=== PATIENT | male | born 1960 | race Two or more races ===

== ENCOUNTER 2024-01-28 18:11 | Emergency (ER) | payer OTHER ==
[2024-01-28] MEDS ORDERED: CARV12 PO (18:21)
[2024-01-28] MEDS ORDERED: POTA-206 PO (18:21)
[2024-01-28] MEDS ORDERED: SACU1TAB7 PO (18:21)
[2024-01-28] MEDS ORDERED: ATOR40TA28 PO (18:21)
[2024-01-28] MEDS ORDERED: AMIO200T68 PO (18:21)
[2024-01-28] MEDS ORDERED: SPIR-37 PO (18:21)
[2024-01-28] MEDS ORDERED: TICA60TA PO (18:21)
[2024-01-28] MEDS ORDERED: DOCU-385 PO (18:21)
[2024-01-28] MEDS ORDERED: ASPI-1444 PO (18:21)
[2024-01-28 19:23] LABS: BASOPHILS % (AUTO) 0.8 % (0.0-2.0); EOSINOPHILS % (AUTO) 0.9 % (1.0-6.0); HEMATOCRIT 50.1 % (41-53); HEMOGLOBIN 16.7 g/dL (13.5-17.5); LYMPHOCYTES # (AUTO) 1.3 K/uL (1.0-4.8); LYMPHOCYTES % (AUTO) 21.2 % (22.0-44.0); MEAN CORPUSCULAR HEMOGLOBIN 30.9 pg (26.0-34.0); MEAN CORPUSCULAR HGB CONC 33.2 G/dL (31.0-37.0); MEAN CORPUSCULAR VOLUME 93 fL (80-100); MONOCYTES # (AUTO) 0.4 K/uL (0.1-1.0); MONOCYTES % (AUTO) 7.3 % (2.0-9.0); NEUTROPHILS # (AUTO) 4.2 K/uL (1.8-7.7); NEUTROPHILS % (AUTO) 69.8 % (40.0-70.0); PLATELET COUNT (AUTO) 182 K/uL (150-450); RED CELL DISTRIBUTION WIDTH 15.1 % (11.5-14.5)
[2024-01-28 19:34] LABS: ANION GAP 9 mmol/L (8-16); CALCIUM, TOTAL 9.4 mg/dL (8.8-10.5); CARBON DIOXIDE 28 mmol/L (22-29); CHLORIDE 103 mmol/L (98-107); CREATININE 1.18 mg/dL (0.60-1.30); GLOMERULAR FILTR. RATE CALC > 60 mL/min (>60); GLUCOSE,RANDOM 88 mg/dL (70-110); POTASSIUM 4.9 mmol/L (3.5-5.1); SODIUM SERUM 140 mmol/L (136-145); UREA NITROGEN, BLOOD 16 mg/dL (7-18)
[2024-01-28 19:39] VITALS: BP 156/97; PULSE 79; RESP 14; O2SAT 95
[2024-01-28 19:42] LABS: TROPONIN I-HIGH SENSITIVITY 12 ng/L (<76)
[2024-01-28 19:43] LABS: B-TYPE NATRIURETIC PEPTIDE 67 pg/mL (0-100)
== END 2024-01-28 20:37 | disposition home or self-care (01) ==
LOC: EMS 18:11
DX: R42 Dizziness and giddiness (principal); Z98.890 Other specified postprocedural states; Z95.1 Presence of aortocoronary bypass graft
CPT/HCPCS: 71045; 80048; 83880; 84484; 85025; 93005; 99285; 36415-L1; 36415-TC